=== PATIENT | male | born 1935 | race Caucasian/White ===

== ENCOUNTER → 2016-10-19 | Outpatient (CLI) | payer OTHER ==
[2016-10-19 15:42] LABS: BASOPHILS # (AUTO) 0.16 10*3/UL; BASOPHILS % (AUTO) 3.2 % (0-1); EOSINOPHILS # (AUTO) 0.09 10*3/UL; EOSINOPHILS % (AUTO) 1.8 % (0-8); HEMATOCRIT 52.3 % (42.0-52.0); HEMOGLOBIN 16.8 g/dL (14.0-18.0); LYMPHOCYTES # (AUTO) 0.69 10*3/uL; MEAN CORPUSCULAR HEMOGLOBIN 29.8 PG (27-31); MEAN CORPUSCULAR HGB CONC 32.1 g/dL (33-37); MEAN CORPUSCULAR VOLUME 92.7 FL (80-90); MEAN PLATELET VOLUME 10.1 FL (7.4-12.2); MONOCYTES # (AUTO) 0.59 10*3/UL (0.3-0.8); MONOCYTES % (AUTO) 11.7 % (5-15); NEUTROPHILS # (AUTO) 3.52 10*3/UL; NEUTROPHILS % (AUTO) 69.6 % (50-80); RED BLOOD COUNT 5.64 10^6/uL (4.70-6.10)
[2016-10-19 15:49] LABS: BUN/CREATININE RATIO 16.66 (6-20); CALCIUM 9.2 mg/dL (8.7-10.7); SERUM ALBUMIN 3.5 g/dL (3.5-4.8)
[2016-10-19 15:50] LABS: C-REACTIVE PROTEIN 2.6 mg/dL (0.0-0.9)
--- NOTE | 2016-10-19 15:54 | DI ---
PA /LATERAL CHEST X-RAY, 10/19/2016 2:46 PM : Clinical History: Chronic congestive heart failure. Previous Exam: 09/12/2013. There is no acute soft tissue or bony abnormality. There is cardiomegaly with moderate CHF. The heart has a "globular" configuration suggesting a cardiomyopathy. There is no separation of the pericardia l fat pad from the epicardial fat pad on the lateral, again suggesting a cardiomyopathy. There is a s mall left pleural effusion with a very small right pleural effusion. There is centrilobular emphysema with pulmonary arterial hypertension. Mediastinal structures are otherwise normal. There are no pulm onary nodules. Readin. Cardiomegaly with CHF and a small left pleural effusion and a very small right pleural effusion. The heart has a "globular" configuration consistent with a cardiomyopathy. 2. Centrilobular emphysema with pulmonary arterial hypertension.
[2016-10-19 15:55] LABS: PLATELET MORPHOLOGY COMMENT NORMAL MORPHOLOGY (NORM); RBC MORPHOLOGY COMMENT NORMAL MORPHOLOGY (NORM); WBC MORPHOLOGY COMMENT NORMAL MORPHOLOGY (NORM)
[2016-10-19 17:05] LABS: ERYTHROCYTE SEDIMENTATION RATE 1 MM/HR (0-15)
== END ==
LOC: MOB RAD 14:49
PROVIDERS: ATTEND Internal Medicine
DX: I50.9 Heart failure, unspecified (principal); L03.311 Cellulitis of abdominal wall; I10 Essential (primary) hypertension; L53.8 Other specified erythematous conditions; R60.0 Localized edema; J43.2 Centrilobular emphysema; I51.7 Cardiomegaly; J90 Pleural effusion, not elsewhere classified; R19.8 Other specified symptoms and signs involving the digestive system and abdomen; F17.200 Nicotine dependence, unspecified, uncomplicated
CPT/HCPCS: 36415; 71020; 80053; 83880; 85025; 85652; 86140; 99215; G0463

== ENCOUNTER → 2016-10-25 | Outpatient (CLI) | payer OTHER ==
[2016-10-25 13:37] LABS: BUN/CREATININE RATIO 17.27 (6-20); CALCIUM 9.3 mg/dL (8.7-10.7)
[2016-10-26 09:26] LABS: HEP B CORE IGM ANTIBODY Negative (Negative); HEPATITIS A IGM Negative (Negative); HEPATITIS B SURFACE AG Negative (Negative)
== END ==
LOC: LAB 13:03
PROVIDERS: ATTEND Internal Medicine
DX: R19.8 Other specified symptoms and signs involving the digestive system and abdomen (principal); I50.9 Heart failure, unspecified; I10 Essential (primary) hypertension; F17.200 Nicotine dependence, unspecified, uncomplicated
CPT/HCPCS: 36415; 80048; 83880; 86705; 86709; 86803; 87340

== ENCOUNTER → 2016-10-26 | Outpatient (CLI) | payer OTHER | LOC: MMPC 11:11 | PROVIDERS: ATTEND Internal Medicine | DX: I50.42 Chronic combined systolic (congestive) and diastolic (congestive) heart failure (principal); I10 Essential (primary) hypertension | CPT/HCPCS: 99214; G0463 ==

== ENCOUNTER → 2016-11-08 | Outpatient (CLI) | payer OTHER | LOC: LAB 11:53 | PROVIDERS: ATTEND Internal Medicine | DX: I50.42 Chronic combined systolic (congestive) and diastolic (congestive) heart failure (principal); Z72.0 Tobacco use | CPT/HCPCS: 36415; 83880 ==

== ENCOUNTER → 2016-11-09 | Outpatient (CLI) | payer OTHER | LOC: MMPC 11:11 | PROVIDERS: ATTEND Internal Medicine | DX: I50.42 Chronic combined systolic (congestive) and diastolic (congestive) heart failure (principal); I10 Essential (primary) hypertension | CPT/HCPCS: 99214; G0463 ==